=== PATIENT | female | born 1980 | race Caucasian/White ===

== ENCOUNTER → 2019-12-03 16:14 | Outpatient (BNVA) | payer OTHER, SELFPAY | PROVIDERS: Visit Provider Nurse Practitioner Family | DX: R42 Dizziness and giddiness (principal); N39.0 Urinary tract infection, site not specified; H65.193 Other acute nonsuppurative otitis media, bilateral | CPT/HCPCS: 81000 ==

== ENCOUNTER → 2020-01-23 08:50 | Outpatient (BNVA) | payer OTHER, SELFPAY | PROVIDERS: Visit Provider Family Medicine | DX: N39.0 Urinary tract infection, site not specified (principal); H65.92 Unspecified nonsuppurative otitis media, left ear; R42 Dizziness and giddiness | CPT/HCPCS: 80053; 81003 ==

== ENCOUNTER 2020-02-06 12:22 | Emergency (ER) | payer OTHER, SELFPAY ==
[2020-02-06 12:31] VITALS: BP 113/77; PULSE 74; RESP 15; TEMP 36.7; O2SAT 98; BMI 20.7
--- NOTE | 2020-02-06 12:45 | CTR_ITS ---
PROCEDURE INFORMATION: Exam: CT Head Without Contrast Exam date and time: 02/06/2020 12:51 PM Age: 39 years old Clinical indication: Dizziness TECHNIQUE: Imaging protocol: Computed tomography of the head without contrast. Radiation optimization: All CT scans at this facility use at least one of these dose optimization techniques: automated exposure control; mA and/or kV adjustment per patient size (includes targeted exams where dose is matched to clinical indication); or iterative reconstruction. COMPARISON: No relevant prior studies available. RADIATION DOSE METRICS: Total DLP: 849.41 mGy-cm FINDINGS: Brain: Normal. No hemorrhage or CT evidence of acute infarction is seen. No mass effect. Ventricles: Normal. No ventriculomegaly. Bones/joints: Unremarkable. No acute fracture. Sinuses: Visualized sinuses are unremarkable. No fluid levels. Mastoid air cells: Visualized mastoid air cells are well aerated. Soft tissues: Unremarkable. CT/CT head wo con* [id number] IMPRESSION: No acute intracranial abnormality. Radiation Dose CTDIVOL = (mGy): DLP = 849.41 (mGy-cm)
[2020-02-06] MEDS: ondansetron 4 MG Tablet PO (12:53)
--- NOTE | 2020-02-06 12:53 | ED_ITS ---
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 She presents today with several month history of vertigo. She denies any trauma. She started having vertigo and saw her doctor. She was diagnosed with an ear infection and treated for that. She said the ear infection is gone but she continues to have worsening vertigo symptoms. Last night was the first time she thrown up with them. She says the vertigo gets worse anytime she moves her head at all. Bending over and turning her head quickly or worse. She gets sweaty and nauseous when the symptoms are severe. She tried meclizine and a couple of other medications but she said nothing has helped at all. She has no other neurologic symptoms. She describes chronic tingling in her fingers and toes. MD elicited complaint: dizziness and vertigo Pertinent past history: BPPV and inner ear problems Onset (ago): month(s) (1-2) Description: room spinning Exacerbating factors: movement/ambulation Relieving factors: remaining still Associated symptoms: Reports headache(s) and vomiting; Denies chest pain, chills, malaise or nausea Associated neuro symptoms: Deny numbness in extremities Review of Systems General: Reports: 10 or more systems reviewed and unremarkable except in HPI and below Const: Denies: fever(s), chills, fatigue or malaise Eyes: Denies: change in vision ENMT: Denies: odynophagia Card: Denies: chest pain or swelling of feet/ankles Resp: Denies: dyspnea, productive cough or non-productive cough GI: Reports: vomiting; Denies: abdominal pain or nausea : Denies: flank pain or difficulty voiding Musc: Denies: neck pain or back pain Skin/Breast: Denies: rash Neuro: Reports: headache(s), dizziness and vertigo; Denies: numbness in extremities or weakness in extremities Armin/Lymph: Denies: easy bruising or easy bleeding PFS ED PFSH: Medical History Anxiety and depression Hx of fracture of femur (~1993) Surgical History Hx of hysterectomy (~2010) Family History Other Cancer Social History Smoking and tobacco status: current every day smoker Physical Exam Const: COMMON NORMALS: no acute distress, patient oriented x3, no limitations and alert GENERAL APPEARANCE: cooperative and comfortable HENMT: HEAD & SCALP: normal to inspection FACE & SINUS: normal facial exam Eye: GENERAL EYE: appearance normal, both eyes and all related structures Neck/C-Spine: COMMON NORMALS: supple, no meningeal signs and no JVD Chest: COMMONS NORMALS: normal inspection of the chest Resp: COMMON NORMALS: normal respiratory effort, No use of accessory muscles and clear to auscultation bilaterally AUSCULTATION: clear to auscultation bilaterally Cardio: COMMON NORMALS: no JVD, regular rate, regular rhythm and No murmurs present (Cardio) RATE: regular rate RHYTHM: regular rhythm GI: COMMON NORMALS: Normal to inspection, nondistended, normoactive bowel sounds present, Soft to palpation and non-tender INSPECTION: Yes normal to inspection AUSCULTATION: Yes normoactive bowel sounds PALPATION: Yes Soft to palpation Back/Pelvis: COMMON NORMALS: thoracic and lumbar spine normal to inspection Extremity: COMMON NORMALS: normal to inspection Neuro: COMMON NORMALS: patient oriented x3, moves all extremities, no focal motor deficits and no sensory deficits noted SENSORIUM/ORIENTATION: Yes alert MENINGEAL SIGNS: Yes no meningeal signs CRANIAL NERVES: Yes CN normal except as noted COORDINATION/BALANCE: [id number] test normal and Romberg test negative COORDINATION: [id number] test normal Psych: COMMON NORMALS: mental status grossly normal, cooperative and normal affect Skin: COMMON NORMALS: no rashes or lesions noted and turgor normal GENERAL SKIN EXAM: no rashes or lesions noted and turgor normal Course ED course: Patient did not appear to be severely symptomatic in the ER. She reported that the nausea went away after the Zofran. We put on a scopolamine patch. CT was done to rule out any intracranial abnormalities as her symptoms have been worsening over 2 months. That was negative. Have given her a referral to ear nose and throat as well as to physical therapy and gave her a note to stay off work today. Vital Signs: Vital signs: Vital Signs Temperature 98.0 F 02/06/20 12:31 Pulse Rate 63 02/06/20 14:32 Respiratory Rate 18 02/06/20 14:32 Blood Pressure 101/55 02/06/20 14:32 Pulse Oximetry 97 02/06/20 14:32 Discharge Plan Discharge Patient Disposition: Home, Self-Care Clinical Impression: Benign paroxysmal positional vertigo Qualifiers: Laterality: unspecified laterality Qualified Code(s): H81.10 - Benign paroxysmal vertigo, unspecified ear Condition: Stable Prescriptions: New Zofran 4 mg tablet 4 mg PO Q6H PRN (Reason: nausea and vomiting) Qty: 14 RF: 0 No Action buspirone 7.5 mg tablet 7.5 mg PO BID PRN (Reason: anxiety) Qty: 30 RF: 2 Ondina-D 24 Hour 180-240 mg tablet extended release 24 hr 1 tab PO QAM Qty: 30 RF: 1 ibuprofen 200 mg Tablet 600 mg PO PRN RF: 0 Genoveva-C with Bioflavonoids 1 tab PO DAILY RF: 0 Discharge Orders: Discharge Order (Routine); Ordered 02/06/20 Ordered By: Claudia Hollingsworth Other Ambulatory Orders: Physical Therapy Eval and Treat Outpatient (Order) Timeframe: 1 Week Facility: [facility] - Location: Physical Therapy Ordered By: Claudia Hollingsworth Referrals: Shakeel Soria MD [Physician] - 7-10 days Discharge Diet: Usual diet Discharge Activity: Resume usual activity Patient Instructions: Vertigo (ED) Activity Restrictions/Additional Instructions: Keep the patch on for a week. Do not take the meclizine while using the patch. Use the zofran as needed for nausea. Follow up for ENT evaluation and physical therapy. 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
[2020-02-06] MEDS: scopolamine 1.5 Patch 1 PATCH TRANSDERMA (14:31)
[2020-02-06 14:32] VITALS: BP 101/55; PULSE 63; RESP 18; O2SAT 97
== END 2020-02-06 14:35 | disposition home or self-care (01) ==
PROVIDERS: Emergency Provider Emergency Medicine
DX: H81.10 Benign paroxysmal vertigo, unspecified ear (principal); F17.210 Nicotine dependence, cigarettes, uncomplicated
CPT/HCPCS: 12345; 70450; 99281; 99283; Q0162

== ENCOUNTER → 2020-10-01 11:25 | Outpatient (BNVA) | payer OTHER, SELFPAY | PROVIDERS: Visit Provider Nurse Practitioner Family | DX: Z20.828 Contact with and (suspected) exposure to other viral communicable diseases (principal) | CPT/HCPCS: 87635 ==